=== PATIENT | male | born 1965 | race Two or more races ===

== ENCOUNTER 2016-07-30 00:30 | Emergency (ER) | payer SELFPAY ==
[~2016-07-30] VITALS: Ht 177.8 cm; Wt 86.2 kg
[2016-07-30] MEDS ORDERED: NITROGLYCERIN PACKET 1 GM PACKET TD ONE (01:00)
[2016-07-30] MEDS ORDERED: ASPIRIN 81 MG TAB.CHEW PO ONE (01:00)
[2016-07-30] MEDS ORDERED: ONDANSETRON HCL/PF 4 MG/2 ML VIAL IVP ONE (01:00)
[2016-07-30] MEDS ORDERED: ASPIRIN 81 MG TAB.CHEW ONE (01:08)
[2016-07-30] MEDS ORDERED: ONDANSETRON HCL/PF 4 MG/2 ML VIAL ONE (01:08)
[2016-07-30] MEDS ORDERED: NITROGLYCERIN PACKET 1 GM PACKET ONE (01:08)
[2016-07-30 01:17] LABS: BASOPHILS % (AUTO) 0.2 % (0.0-2.0); DIFF TOTAL % 100 %; EOSINOPHILS # (AUTO) 0.1 /CMM (0.0-0.7); EOSINOPHILS % (AUTO) 1.3 % (0.0-6.0); HEMATOCRIT 40 % (39-51); HEMOGLOBIN 13.8 g/dL (13.5-17.5); LYMPHOCYTES # (AUTO) 0.4 /CMM (0.8-4.8); MEAN CORPUSCULAR HEMOGLOBIN 30 PG (26.0-33.0); MEAN CORPUSCULAR HGB CONC 34 g/dl (31.0-36.0); MEAN CORPUSCULAR VOLUME 87 fL (80-96); MONOCYTES # (AUTO) 0.4 /CMM (0.1-1.30); MONOCYTES % (AUTO) 4.3 % (2.0-12.0); NEUTROPHILS # (AUTO) 7.3 /CMM (1.8-8.9); NEUTROPHILS % (AUTO) 89.2 % (43.0-81.0); PLATELET COUNT (AUTO) 178 /CMM (150-450); RED BLOOD CELL COUNT(AUTO) 4.63 MIL/uL (4.5-6.0); WHITE BLOOD COUNT (AUTO) 8.2 K/uL (4.3-11.0)
[2016-07-30 01:34] LABS: TROPONIN I < 0.017 ng/mL (0.00-0.056)
[2016-07-30 01:38] LABS: ANION GAP 14 (5-14); CALCIUM, SERUM 8.2 mg/dL (8.5-10.1); CARBON DIOXIDE 26 mmol/L (21-32); CHLORIDE 104 mmol/L (98-107); CREATININE 0.8 mg/dL (0.6-1.3); GFR 101 mL/min (>60); GLUCOSE 146 mg/dL (74-106); POTASSIUM 3.5 mmol/L (3.5-5.1); SODIUM SERUM 140 mmol/L (136-145); UREA NITROGEN, BLOOD 16 mg/dL (7-18)
[2016-07-30 01:42] LABS: ALANINE AMINOTRANSFERASE 35 U/L (12-78); ASPARTATE AMINOTRANSFERASE 15 U/L (15-37); BILIRUBIN,DIRECT 0.1 mg/dL (0.0-0.2); BILIRUBIN,TOTAL 0.9 mg/dL (0.2-1.0); INDIRECT BILIRUBIN 0.8 mg/dL (0.0-1.1); TOTAL PROTEIN, SERUM 7.5 g/dL (6.4-8.2)
[2016-07-30 05:43] VITALS: BP 125/76
== END 2016-07-30 05:45 | disposition home or self-care (01) ==
LOC: ER 00:31
DX: R07.9 Chest pain, unspecified (principal); R20.0 Anesthesia of skin
CPT/HCPCS: 36415; 71010; 80048; 80076; 83880; 84484 ×2; 85025; 93005; 96374; 99285; A4606 ×2; J2405; Z7610 ×2

== ENCOUNTER 2017-10-30 15:42 | Inpatient (IN) | payer OTHER ==
[~2017-10-30] VITALS: Ht 177.8 cm; Wt 79.4 kg
[2017-10-30] MEDS ORDERED: MORPHINE SULFATE INJ 4 MG/ML DISP.SYRIN ONE (15:58)
[2017-10-30] MEDS ORDERED: ASPIRIN 81 MG TAB.CHEW ONE ×2 (15:59→16:00)
[2017-10-30] MEDS ORDERED: NITROGLYCERIN PACKET 1 GM PACKET ONE (15:59)
[2017-10-30] MEDS ORDERED: MORPHINE SULFATE INJ 2 MG/ML DISP.SYRIN IV ONE (16:00)
[2017-10-30] MEDS ORDERED: NITROGLYCERIN PACKET 1 GM PACKET TD ONE (16:00)
[2017-10-30] MEDS ORDERED: ASPIRIN 325 MG TABLET PO ONE (16:00)
--- NOTE | 2017-10-30 16:07 | NUR ---
20g right ac iv started, blood sample obtained and sent to lab. medicated pt sas ordered
[2017-10-30 16:09] LABS: BASOPHILS % (AUTO) 0.6 % (0.0-2.0); EOSINOPHILS % (AUTO) 2.5 % (0.0-6.0); HEMATOCRIT 40 % (39-51); HEMOGLOBIN 14.1 g/dL (13.5-17.5); LYMPHOCYTES # (AUTO) 1.4 /CMM (0.8-4.8); LYMPHOCYTES % (AUTO) 27.6 % (20.0-44.0); MEAN CORPUSCULAR HGB CONC 35 g/dl (31.0-36.0); MEAN CORPUSCULAR VOLUME 86 fL (80-96); MONOCYTES # (AUTO) 0.4 /CMM (0.1-1.30); MONOCYTES % (AUTO) 8.1 % (2.0-12.0); NEUTROPHILS # (AUTO) 3.2 /CMM (1.8-8.9); NEUTROPHILS % (AUTO) 61.2 % (43.0-81.0); PLATELET COUNT (AUTO) 193 /CMM (150-450); RDW COEFFICIENT OF VARIATION 11.3 (11.5-15.0); RED BLOOD CELL COUNT(AUTO) 4.63 MIL/uL (4.5-6.0); WHITE BLOOD COUNT (AUTO) 5.1 K/uL (4.3-11.0)
[2017-10-30 16:17] LABS: CARBON DIOXIDE 27 mmol/L (21-32); CHLORIDE 103 mmol/L (98-107); CREATININE 0.7 mg/dL (0.6-1.3); GLUCOSE 107 mg/dL (74-106); POTASSIUM 3.6 mmol/L (3.5-5.1); SODIUM SERUM 139 mmol/L (136-145); UREA NITROGEN, BLOOD 14 mg/dL (7-18)
[2017-10-30 16:22] LABS: INR 0.91 (0.85-1.15)
[2017-10-30 16:27] LABS: TROPONIN I < 0.017 ng/mL (0.00-0.056)
--- NOTE | 2017-10-30 17:00 | NUR ---
PT CAME IN FOR CHEST PAIN X 2 DAYS. DENIES TRAUMA. NAD NOTED. VSS. SAFETY AND COMFORT MEASURES PROVIDED. WILL MONITOR.
--- NOTE | 2017-10-30 18:27 | NUR ---
REPORT GIVEN TO FRANKLYN PONCE FOR TELE 320-2.
[2017-10-30] MEDS ORDERED: OMEG1CAP PO (18:52)
[2017-10-30 19:00] VITALS: BP 130/85
--- NOTE | 2017-10-30 19:00 | NUR ---
TELE/RN NOTES NEW ADMITTED PATIENT ARRIVE FROM ER ACCOMPANIED BY FAMILY MEMBER ON A GURNEY, ALERT, ORIENTED X3, ABLE TO VERBALIZE NEEDS, BELONGINGS CHECK, REPORTED PAIN 7/10, BUT TOLERABLE ON BACK OF NECK,HOT PACK GIVEN FOR COMFORT, SKIN INTACT AND DRY, RECEIVED MD ORDER WITH DX OF CHEST PAIN, ON TELE AT SR IN 80'S, PROVIDED ROOM ORIENTATION, ON CARDIAC DIET, PATIENT COOPERTAIVE TO CARE, ON ROOM AIR O2 SAT AT 95%, ON CARDIAC DIET, FLUIDS PROVIDED. MEDICATION LIST RECONCILED. FAMILY INVOLVED.
[2017-10-30] MEDS ORDERED: MAG HYDROX/AL HYDROX/SIMETH 30 ML UDC PO PRN (19:30)
[2017-10-30] MEDS ORDERED: Z GUARD REMEDY 2 OZ OINT TP PRN (19:30)
[2017-10-30] MEDS ORDERED: ONDANSETRON HCL/PF 4 MG/2 ML VIAL IVP PRN (19:30)
[2017-10-30] MEDS ORDERED: ACETAMINOPHEN 325 MG TABLET PO PRN (19:30)
[2017-10-30] MEDS ORDERED: ZOLPIDEM TARTRATE 5 MG TABLET PO PRN (19:30)
[2017-10-30] MEDS ORDERED: HYDROCODONE/APAP 5/325MG 1 EACH TABLET PO PRN (19:30)
[2017-10-30] MEDS ORDERED: MAGNESIUM HYDROXIDE 30 ML UDC PO PRN (19:30)
[2017-10-30 20:00] VITALS: BP 130/85
--- NOTE | 2017-10-30 20:00 | NUR ---
TELE/RN OPENING NOTES PATIENT IN BED, RESTING COMFORTABLY IN BED, ENDORSE RECIVE FROM AM RN FOR RAY, MONITORING FOR ANY S/S OF HYPERTENSION/HYPOTENSION, REQUIRE ASSISTANCE TO BATHROOM, KEEP COMFORTABLE, ALERT, ORIENTED X3, ABLE TO VERBALIZE NEEDS, DENIES PAIN, MOTIVATED AND ABLE TO SELF CARE, PROVIDE NEEDS, CALL LIGHTS WITHIN REACH, BED IN LOCK POSITION, WILL PROVIDE MEDICATIONS AND MONITOR PATIENT DURING THE SHIFT. SKIN INTACT.
[2017-10-30] MEDS: NITROGLYCERIN 0.4 MG/TAB BOTTLE SL PRN (22:22)
--- NOTE | 2017-10-30 22:23 | NUR ---
TELE/RN NOTES PATIETN REPORTED CHEST PAIN OF 7/10, OXYGEN VIA NC 2L ADMINISTERED, B/P CHECK AT 130/80, NIROGLYCERINE, 1 TAB GIVEN, SR AT 83 ON TELE READING, WILL MONITOR PAIN RELIEF.
--- NOTE | 2017-10-30 22:29 | NUR ---
TELE/RN NOTES PATIENT CHEST PAIN MONITORING REPORTED AT 510 , I MORE NITRO GIVEN , WILL MONITOR.
--- NOTE | 2017-10-30 22:29 | NUR ---
TELE/RN NOTES CHEST PAIN IS STILL 7/10 AFTER TAKING I SUBLINGUAL NITRO, WILL RECHECK B/P AND ADMINISTER 1 NITRO ORDERED/PRTOCOL.
--- NOTE | 2017-10-30 22:32 | NUR ---
TELE/RN NOTES B/P RECHECK AT 110/70, PRESSURE DOWN AT 5/10. WILL MONITOR.
--- NOTE | 2017-10-30 22:34 | NUR ---
TELE /RN NOTES PAIN IN CHEST RELIEVED, REPORTED EATNE SOME SANDWICH AND MAY NEED TO PASS GAS, B/P CHECK AT 105/81. INFORMED BLOOD PRESSURE IN LOW SIDE, PROVIDE FLUIDS, KEEP MONITORING.REPORTED FEEL FINE TO RECHECK IN AN HOUR PER PATIENT.
--- NOTE | 2017-10-30 23:03 | NUR ---
TELE/RN NOTES PATENT REPORTED DISCOMFORT /DYSPEPSIA. MAALOX NEED TO GIVE WILL MONITOR EFFECTIVENESS.
[2017-10-31] VITALS (10 sets, daily range): BP systolic 114–144; BP diastolic 71–94
[2017-10-31 06:27] LABS: BASOPHILS % (AUTO) 0.3 % (0.0-2.0); HEMATOCRIT 38 % (39-51); HEMOGLOBIN 13.1 g/dL (13.5-17.5); LYMPHOCYTES # (AUTO) 1.6 /CMM (0.8-4.8); LYMPHOCYTES % (AUTO) 21.5 % (20.0-44.0); MEAN CORPUSCULAR HGB CONC 35 g/dl (31.0-36.0); MEAN CORPUSCULAR VOLUME 89 fL (80-96); MONOCYTES # (AUTO) 0.6 /CMM (0.1-1.30); MONOCYTES % (AUTO) 8.6 % (2.0-12.0); NEUTROPHILS % (AUTO) 67.6 % (43.0-81.0); PLATELET COUNT (AUTO) 172 /CMM (150-450); RDW COEFFICIENT OF VARIATION 12.7 (11.5-15.0); RED BLOOD CELL COUNT(AUTO) 4.25 MIL/uL (4.5-6.0); WHITE BLOOD COUNT (AUTO) 7.3 K/uL (4.3-11.0)
[2017-10-31 06:42] LABS: ALBUMIN 3.9 g/dL (3.4-5.0); CALCIUM, SERUM 8.7 mg/dL (8.5-10.1); CREATININE 0.8 mg/dL (0.6-1.3); MAGNESIUM 3.3 mg/dL (1.8-2.4); PHOSPHORUS 3.9 mg/dL (2.5-4.9); POTASSIUM 3.8 mmol/L (3.5-5.1)
--- NOTE | 2017-10-31 06:53 | NUR ---
320-2 TELE/RN NOTES PATIENT ABLE TO SLEEP DURING THE NIGHT , RESPIRATIONS EVEN AND UNLABORED, MONITORING FOR CHEST PAIN WITH NEEDED NITRO, PAIN RELIEF, ABLE TO GO TO BATHROOM, SKIN WARM TO TOUCH. WILL ENDORSE TO AM RN FOR RAY.SR 80'S
--- NOTE | 2017-10-31 07:10 | NUR ---
RN NOTES: PATIENT RESTING IN BED. NONLABORED BREATHING NOTED ON 2L NASAL CANNULA. PATIENT AOX4. SR-SB ON TELE MONITOR WITH HR OF 59-60. CALL LIGHT WITHIN REACH. IV ON RIGHT AC PATENT AND INTACT. BED IN LOWEST LOCKED POSITION. CALL LIGHT WITHIN REACH. WILL CONTINUE TO MONITOR
[2017-10-31 07:23] LABS: THYROID STIMULATING HORMONE 0.902 uIU/mL (0.358-3.74)
[2017-10-31] MEDS ORDERED: METOPROLOL TARTRATE INJ 5 MG/5 ML AMPUL ONE (10:40)
[2017-10-31] MEDS ORDERED: IOHEXOL-350 100 ML VIAL IV ONE (10:55)
[2017-10-31] MEDS ORDERED: IV NS 0.9% 250 ML IV ONE (10:55)
[2017-10-31] MEDS: NITROGLYCERIN 0.4 MG/TAB BOTTLE SL PRN ×2 (11:35→12:57)
--- NOTE | 2017-10-31 11:37 | NUR ---
RN NOTES: PATIENT RETURNED FROM CTA.
--- NOTE | 2017-10-31 11:37 | NUR ---
RN NOTES: PATIENT RETURNED FROM CTA STABLE. NONLABORED BREATHING NOTED ON ROOM AIR. SPO2 AT 97. 132/79 WITH HR OF 68. PATIENT STATES FEELING HEAVINESS ON BOTH CHEST AND STOMACH AND RATES IT AT A 7/10, STATES THAT "IT IS NOT PAIN." NITRO ADMINISTERED
--- NOTE | 2017-10-31 11:46 | NUR ---
RN NOTES: PATIENT STATES THAT "HEAVINESS" IS ALLEVIATED. DENIES CHEST PAIN. WILL CONTINUE TO MONITOR
[2017-10-31] MEDS: PANTOPRAZOLE 40 MG TABLET.DR PO SCH (11:52)
[2017-10-31] MEDS: ASPIRIN 81 MG TAB.CHEW PO SCH (11:54)
--- NOTE | 2017-10-31 11:55 | NUR ---
RN NOTES: PANTAPRAZOLE AND ASPIRIN ADMINISTERED PER MD ORDERS. PATIENT EATING LUNCH, TOLERATING WELL
--- NOTE | 2017-10-31 12:59 | NUR ---
RN NOTES: PATIENT STATES FEELING "HEAVINESS" OF 3/10. NONLABORED BREATHING NOTED. NITRO ADMINISTERED. BP NOTED
--- NOTE | 2017-10-31 13:08 | NUR ---
RN NOTES: PATIENT STATES FEEING COMPLETE RELIEF OF "HEAVINESS"
--- NOTE | 2017-10-31 17:48 | NUR ---
RN NOTES: DR SANIA BARON NOTIFIED THAT CTA RESULTS ARE AVAILABLE. AWAITING CARDIOLOGY CLEARANCE PER DR BARON PATIENT AMBULATED X2 AROUND THE UNIT. PATIENT STEADY, DENYING CHEST PAIN, TOLERATING AMBULATION
--- NOTE | 2017-10-31 19:10 | NUR ---
MS RN OPENING NOTE RECEIVED PATIENT IN BED, ALERT ORIENTED X4, ON 2L OXYGEN VIA NC. IN NO APPARENT DISTRESS OR DISCOMFORT NOTED AT THIS TIME, DENIES CHEST PAIN AND SOB AT THIS TIME. ABLE TO MAKE NEEDS KNOWN. RIGHT AC 20G AND LEFT AC 18G SL, PATENT AND INTACT NO SIGN OF INFILTRATION. PATIENT KEPT COMFORTABLE, ALL NEEDS ATTENDED. SAFETY MEASURES IN PLACE, BED IN LOW LOCKED POSITION, SIDE RAILS UP X2, CALL LIGHT WITHIN EASY REACH, WILL CONTINUE TO MONITOR.
--- NOTE | 2017-10-31 19:34 | NUR ---
RN NOTES: PATIENT RESTING IN BED. NONLABORED BREATHING NOTED ON 2L NASAL CANNULA. PATIENT AOX4.CALL LIGHT WITHIN REACH. IV ON RIGHT AC PATENT AND INTACT. BED IN LOWEST LOCKED POSITION. CALL LIGHT WITHIN REACH. DENYING CHEST PAIN AND DENYING CHEST PRESSURE AT THE MOMEMENT. ENDORSED
--- NOTE | 2017-11-01 06:41 | NUR ---
MS RN CLOSING NOTE PATIENT IN BED, SLEEPING, EASILY AROUSED WITH VERBAL STIMULI, ORIENTED X4, ON ROOM AIR, TOLERATING WELL. IN NO APPARENT DISTRESS OR DISCOMFORT NOTED AT THIS TIME, RESPIRATIONS EVEN AND UNLABORED. ABLE TO MAKE NEEDS KNOWN. RIGHT AC 20G AND LEFT AC 18G SL, PATENT AND INTACT NO SIGN OF INFILTRATION. PATIENT KEPT COMFORTABLE, ALL NEEDS ATTENDED. SAFETY MEASURES IN PLACE, BED IN LOW LOCKED POSITION, SIDE RAILS UP X2, CALL LIGHT WITHIN EASY REACH, WILL ENDORSE TO AM SHIFT FOR RAY.
--- NOTE | 2017-11-01 07:10 | NUR ---
RN NOTES: PATIENT RESTING IN BED. NONLABORED BREATHING NOTED ON 2L NASAL CANNULA. PATIENT AOX4. CALL LIGHT WITHIN REACH. IV ON RIGHT AC PATENT AND INTACT AND IV SITE ON LEFT AC 18 PATENT AND INTACT. BED IN LOWEST LOCKED POSITION. CALL LIGHT WITHIN REACH. WILL CONTINUE TO MONITOR
[2017-11-01] MEDS: PANTOPRAZOLE 40 MG TABLET.DR PO SCH (07:43)
[2017-11-01 08:00] VITALS: BP 136/88
[2017-11-01] MEDS: ASPIRIN 81 MG TAB.CHEW PO SCH (08:32)
--- NOTE | 2017-11-01 12:33 | NUR ---
RN NOTES: PATIENT DISCHARGED HOME PER DR BARON'S ORDERS. PATIENT STABLE THROUGHOUT SHIFT. DENYING CHEST PAIN. NONLABORED BREATHING NOTED ON ROOM AIR. EXISTCARE INSTRUCTIONS GIVEN TO PATIENT. PATIENT EDUCATED ON DR BARON'S INSTRUCTIONS WELL. PATIENT VERBALIZED UNDERSTANDING. IVS TAKEN OUT. ALL BELONGINGS GIVEN TO PATIENT. PATIENT AMBULATORY AND STABLE. LEFT WITH BROTHER, REFUSED TO BE ACCOMPANIED TO HOSPITAL EXIST WITH STAFF MEMBERS. LEFT STABLE
== END 2017-11-01 12:30 | disposition home or self-care (01) | DRG 203 ==
LOC: ER 15:42 → TELE 18:39 → MED 10-31 09:13
PROVIDERS: ADMIT Hospitalist; ATTEND Hospitalist
DX: M94.0 Chondrocostal junction syndrome [Tietze] (principal); I10 Essential (primary) hypertension; Z87.891 Personal history of nicotine dependence; Z71.6 Tobacco abuse counseling
CPT/HCPCS: 36415; 71045-TC; 75574; 80048-TC; 80061-TC; 82040-TC; 83735-TC; 84100-TC; 84443-TC; 84484-TC; 85025-TC; 85730-TC; 87081-TC; A4606; J2270; J3490; J7050; Q9967; Z7610